=== PATIENT | female | born 1950 ===

== ENCOUNTER 2016-07-31 09:39 | Emergency (ER) | payer BC ==
[2016-07-31 10:38] VITALS: BP 138/72
--- NOTE | 2016-07-31 12:15 | UC ---
Complaint Female HPI - HPI Summary HPI Summary: 2-3 DAYS OF MILD URINARY SX. PT DID NOT WANT TO GO TO DOCTOR ON HOLIDAY SO TOOK AZO FOR 2 DAYS. WOKE THIS MORNING WITH INCREASED PAIN, FREQUENCY AND GROSS HEMATURIA. - History Of Current Complaint Chief Complaint: UCGU Stated Complaint: UTI Time Seen by Provider: 07/31/16 11:20 Hx Obtained From: Patient ?: No Onset/Duration: Gradual Onset, Lasting Days - 3, Still Present, Worse Since - TODAY Timing: Constant Severity Initially: Mild Severity Currently: Moderate Pain Intensity: 3 Character: Dull, Burning Aggravating Factor(s): Nothing Alleviating Factor(s): Nothing Associated Signs And Symptoms: Negative: Fever, Back Pain, Vaginal Bleeding/ Discharge, Vaginal Discharge, Nausea, Vomiting(# Of Episodes =), Genital Swelling, Genital Blisters - Allergies/Home Medications Allergies/Adverse Reactions: Allergies Allergy/AdvReac Type Severity Reaction Status Date / Time Morphine and Related Allergy Hives Verified 07/31/16 10:43 environmental Allergy Congestion Uncoded 07/31/16 10:43 opioids Allergy Itching Uncoded 07/31/16 10:43 Home Medications: Home Medications Cholecalciferol TAB* [Vitamin D TAB*] 2,000 units PO DAILY 07/31/16 [History Confirmed 07/31/16] Conjugated Estrogens-Medroxypr [Prempro] 1 tab PO DAILY 07/31/16 [History Confirmed 07/31/16] PMH/Surg Hx/FS Hx/Imm Hx Cardiovascular History Of: Reports: Hypertension - Surgical History Surgical History: Yes Surgery Procedure, Year, and Place: Gastric bypass, david, appy, hiatal hernia repair all in same surgery 1994. - Family History Known Family History: Positive: Cardiac Disease, Hypertension Negative: Diabetes - Social History Occupation: Employed Full-time Lives: With Family Alcohol Use: None Substance Use Type: None Smoking Status (MU): Former Smoker Review of Systems Constitutional: Negative Skin: Negative Eyes: Negative ENT: Negative Respiratory: Negative Cardiovascular: Negative Gastrointestinal: Negative Genitourinary: Dysuria, Hematuria, Frequency Motor: Negative Neurovascular: Negative Musculoskeletal: Negative Neurological: Negative Psychological: Negative All Other Systems Reviewed And Are Negative: Yes Physical Exam Triage Information Reviewed: Yes Appearance: Well-Appearing, No Pain Distress, Well-Nourished Vital Signs: Initial Vital Signs Temp 97.3 F 07/31/16 10:34 Pulse 73 07/31/16 10:34 Resp 14 07/31/16 10:34 BP 138/72 07/31/16 10:34 Pulse Ox 100 07/31/16 10:34 Vital Signs Reviewed: Yes Eyes: Positive: Conjunctiva Clear. Negative: Discharge ENT: Positive: Hearing grossly normal. Negative: Muffled/hoarse voice Neck exam: Normal Neck: Positive: Supple Respiratory: Positive: Lungs clear, Normal breath sounds, No respiratory distress, No accessory muscle use Cardiovascular: Positive: RRR, No Murmur Abdomen Description: Positive: Soft. Negative: Nontender - TENDER SUPRAPUBIC, CVA Tenderness (R), CVA Tenderness (L), Distended, Guarding, McBurney's Point Tenderness Bowel Sounds: Positive: Present Musculoskeletal Exam: Normal Neurological: Positive: Alert, Muscle Tone Normal Psychological: Positive: Age Appropriate Behavior Skin Exam: Normal Complaint Female Dx - Differential Dx/Diagnosis Differential Diagnosis/HQI/PQRI: Urinary Tract Infection Provider Diagnoses: UTI, HEMATURIA Discharge - Discharge Plan Condition: Stable Disposition: HOME Prescriptions: Ciprofloxacin TAB* [Cipro Tab*] 250 mg PO BID #6 tab Patient Education Materials: Urinary Tract Infection in Women (ED), Hematuria ( ED) Referrals: Perico Redding DO [Primary Care Provider] - (FOLLOW UP IN 2 DAYS IF NOT IMPROVING. OTHERWISE FOLLOW UP IN 2 WEEKS.) Additional Instructions: CIPROFLOXACIN: You have been given a new antibacterial agent, ciprofloxacin (Cipro). This medicine is not related to the penicillins, sulfas, cephalosporins, or tetracyclines. It is often given to patients who are allergic to these drugs. It has been chosen for you either because other drugs are not appropriate, or because of the nature of your problem. Cipro should not be taken with antacids, as these can decrease its effectiveness. It can be taken without regard to meals. CIPRO SHOULD NOT BE TAKEN BY CHILDREN, NURSING WOMEN, OR WOMEN. Although Cipro is usually well-tolerated, common side effects can include nausea and diarrhea. Contact your doctor if you experience any unusual symptoms while on this medication, such as joint pain or swelling, shortness of breath, wheezing, faintness, or hives. ANY TIME YOU TAKE AN ANTIBIOTIC, IT IS IMPORTANT TO REPLENISH THE BODY'S BALANCE OF "GOOD" BACTERIA BY EATING HIGH QUALITY CULTURED FOOD SUCH YOGURT, SAURKRAUT OR SYLVIA CHI AND/OR TAKING A PROBIOTIC SUPPLEMENT.
== END 2016-07-31 12:15 | disposition home or self-care (01) ==
LOC: UCCORT 09:39
DX: N39.0 Urinary tract infection, site not specified (principal); R31.9 Hematuria, unspecified; Z88.5 Allergy status to narcotic agent; Z79.890 Hormone replacement therapy; I10 Essential (primary) hypertension; Z87.891 Personal history of nicotine dependence
CPT/HCPCS: 87077; 87086; 87186; 99212; G0463

== ENCOUNTER 2016-09-09 09:37 | Emergency (ER) | payer BC ==
[2016-09-09 10:59] VITALS: BP 158/104
--- NOTE | 2016-09-09 11:28 | UC ---
Complaint Female HPI - HPI Summary HPI Summary: URINARY FREQUENCY , BURNING X 1 DAY , NO FEVER, NO CHILLS , NO FLANK PAIN + HEMATURIA - History Of Current Complaint Chief Complaint: UCGU Stated Complaint: URINARY COMPLAINT Time Seen by Provider: 09/09/16 11:11 Hx Obtained From: Patient Onset/Duration: Sudden Onset, Lasting Days - 1, Still Present Timing: Constant Severity Initially: Moderate Severity Currently: Moderate Character: Burning Aggravating Factor(s): Urination Associated Signs And Symptoms: Negative: Fever, Back Pain, Vaginal Bleeding/ Discharge, Vaginal Discharge, Nausea, Vomiting(# Of Episodes =), Genital Swelling, Genital Blisters, Retained Foregin Body (Specify) - Allergies/Home Medications Allergies/Adverse Reactions: Allergies Allergy/AdvReac Type Severity Reaction Status Date / Time Morphine and Related Allergy Hives Verified 09/09/16 10:56 environmental Allergy Congestion Uncoded 09/09/16 10:56 opioids Allergy Itching Uncoded 09/09/16 10:56 PMH/Surg Hx/FS Hx/Imm Hx Cardiovascular History Of: Reports: Hypertension - Surgical History Surgical History: Yes Surgery Procedure, Year, and Place: Gastric bypass, david, appy, hiatal hernia repair all in same surgery 1994. - Family History Known Family History: Positive: Cardiac Disease, Hypertension Negative: Diabetes - Social History Alcohol Use: None Substance Use Type: None Smoking Status (MU): Former Smoker Amount Used/How Often: about 1 ppd Length of Time of Smoking/Using Tobacco: from age 21 to age 47 When Did the Patient Quit Smoking/Using Tobacco: quit 1996 Review of Systems Constitutional: Negative Skin: Negative Eyes: Negative ENT: Negative Respiratory: Negative Cardiovascular: Negative Gastrointestinal: Negative Genitourinary: Dysuria, Frequency, Urgency All Other Systems Reviewed And Are Negative: Yes Physical Exam Triage Information Reviewed: Yes Appearance: Well-Appearing, No Pain Distress, Well-Nourished Vital Signs: Initial Vital Signs Temp 98.4 F 09/09/16 10:52 Pulse 66 09/09/16 10:52 Resp 14 09/09/16 10:52 BP 158/104 09/09/16 10:52 Pulse Ox 99 09/09/16 10:52 Vital Signs Reviewed: Yes Eyes: Positive: Conjunctiva Clear ENT: Positive: Normal ENT inspection, Hearing grossly normal, Pharynx normal Neck: Positive: Supple, Nontender, No Lymphadenopathy Respiratory Exam: Normal Respiratory: Positive: Chest non-tender, Lungs clear, Normal breath sounds Cardiovascular: Positive: RRR, No Murmur, Pulses Normal Abdominal Exam: Normal Abdomen Description: Positive: Nontender, Soft. Negative: CVA Tenderness (R), CVA Tenderness (L), Distended, Guarding Bowel Sounds: Positive: Present Skin Exam: Normal Complaint Female Dx - Differential Dx/Diagnosis Provider Diagnoses: UTI Discharge - Discharge Plan Condition: Stable Disposition: HOME Prescriptions: Ciprofloxacin TAB* [Cipro Tab*] 500 mg PO BID #14 tab Patient Education Materials: Urinary Tract Infection in Women (ED) Referrals: Perico Redding DO [Primary Care Provider] - If Needed
== END 2016-09-09 11:49 | disposition home or self-care (01) ==
LOC: UCCORT 09:37
DX: N39.0 Urinary tract infection, site not specified (principal); I10 Essential (primary) hypertension; I51.9 Heart disease, unspecified; Z87.891 Personal history of nicotine dependence; Z98.84 Bariatric surgery status; Z88.5 Allergy status to narcotic agent
CPT/HCPCS: 87086; 99212; G0463

== ENCOUNTER 2017-02-02 19:26 | Emergency (ER) | payer BC ==
[2017-02-02 19:48] VITALS: BP 132/77
--- NOTE | 2017-02-02 19:57 | UC ---
Complaint Female HPI - HPI Summary HPI Summary: Pt presents with c/o dysuria, foul odor with urination, frequency and urgency X 2 days. - History Of Current Complaint Chief Complaint: UCGU Stated Complaint: URINARY COMPLAINT Time Seen by Provider: 02/02/17 19:44 Hx Obtained From: Patient ?: No Onset/Duration: Sudden Onset, Lasting Days Timing: Constant Severity Initially: Mild Severity Currently: Mild Character: Dull, Burning Aggravating Factor(s): Urination Alleviating Factor(s): Meds - AZO Associated Signs And Symptoms: Positive: Negative - Allergies/Home Medications Allergies/Adverse Reactions: Allergies Allergy/AdvReac Type Severity Reaction Status Date / Time Morphine and Related Allergy Hives Verified 02/02/17 19:48 environmental Allergy Congestion Uncoded 02/02/17 19:48 opioids Allergy Itching Uncoded 02/02/17 19:48 Home Medications: Home Medications Calcium 500 mg PO DAILY 02/02/17 [History Confirmed 02/02/17] Conjugated Estrogens-Medroxypr [Prempro 0.45-1.5 mg] 1 tab PO DAILY 02/02/17 [ History Confirmed 02/02/17] PMH/Surg Hx/FS Hx/Imm Hx Previously Healthy: Yes GI/ History: Other - UTI Other GI/ History: UTI - Surgical History Surgical History: Yes Surgery Procedure, Year, and Place: Gastric bypass, david, appy, hiatal hernia repair all in same surgery 1994. - Family History Known Family History: Positive: Cardiac Disease, Hypertension Negative: Diabetes - Social History Alcohol Use: Occasionally Substance Use Type: None Smoking Status (MU): Former Smoker Amount Used/How Often: about 1 ppd Length of Time of Smoking/Using Tobacco: from age 21 to age 47 When Did the Patient Quit Smoking/Using Tobacco: quit 1996 Review of Systems Constitutional: Negative Skin: Negative Eyes: Negative ENT: Negative Respiratory: Negative Cardiovascular: Negative Gastrointestinal: Negative Genitourinary: Dysuria, Frequency, Urgency, Other - odor Motor: Negative Neurovascular: Negative Musculoskeletal: Negative Neurological: Negative Psychological: Negative All Other Systems Reviewed And Are Negative: Yes Physical Exam Triage Information Reviewed: Yes Appearance: Well-Appearing Vital Signs: Initial Vital Signs Temp 98.9 F 02/02/17 19:43 Pulse 98 02/02/17 19:43 Resp 16 02/02/17 19:43 BP 132/77 02/02/17 19:43 Pulse Ox 98 02/02/17 19:43 Eye Exam: Normal Neck exam: Normal Respiratory Exam: Normal Cardiovascular Exam: Normal Abdominal Exam: Normal Musculoskeletal Exam: Normal Neurological Exam: Normal Psychological Exam: Normal Skin Exam: Normal Complaint Female Dx - Course Course Of Treatment: I explained to the pt that due to her prior use of OTC AZO that we are unable to to test her urine with a UA and that we will have to treat her empirically for a UTI and send out her urine for a culture. Pt verbalized understanding and agreed to plan of care. - Differential Dx/Diagnosis Differential Diagnosis/HQI/PQRI: Urinary Tract Infection, Other - dysuria Provider Diagnoses: dysuria Discharge - Discharge Plan Condition: Stable Disposition: HOME Prescriptions: Cephalexin CAP* [Keflex 500 CAP*] 500 mg PO Q12H #14 cap Patient Education Materials: Dysuria (ED) Referrals: Perico Redding DO [Primary Care Provider] - If Needed
--- NOTE | 2017-02-05 07:37 | UC ---
Progress - Progress Note Progress Note: please inform this pt that her urine culture did not grow out any bacteria. also let her know that 1 out of 2 of her prior cx failed to grow out bacteria, this suggests that her sx were not the result of an infection. it is ok to stop abx. we wanted to let her know. she can follow up with pcp on why she may be having sx without infection.
== END 2017-02-02 20:07 | disposition home or self-care (01) ==
LOC: UCCORT 19:26
DX: R30.0 Dysuria (principal); Z87.440 Personal history of urinary (tract) infections; Z87.891 Personal history of nicotine dependence
CPT/HCPCS: 87086; 99212; G0463

== ENCOUNTER 2019-04-22 07:11 | Emergency (ER) | payer BC ==
[2019-04-22 07:29] VITALS: BP 157/91
--- NOTE | 2019-04-22 07:57 | UC ---
Laceration HPI - HPI Summary HPI Summary: head laceration x 3 days ago s/p fall on her kitchen , hit the back of her head / scalp , laceration of the posterior scalp, moderate in severity , has been applying pressure to control the bleeding no loc, no memory loss, no vision loss, no n/v, no photophobia - History Of Current Complaint Chief Complaint: UCLaceration Stated Complaint: HEAD LAC Time Seen by Provider: 04/22/19 07:23 Hx Obtained From: Patient Laceration Location: Hand Mechanism Of Injury: Blunt Trauma Onset/Duration: Sudden Onset, Still Present Severity: Moderate Pain Intensity: 0 Aggravating Factors: Movement - Allergies/Home Medications Allergies/Adverse Reactions: Allergies Allergy/AdvReac Type Severity Reaction Status Date / Time morphine Allergy "Full body Verified 04/22/19 07:26 rash" Opioids - Morphine Analogues Allergy See Comment Verified 04/22/19 07:26 oxycodone Allergy Itching Verified 04/22/19 07:26 environmental Allergy Congestion Uncoded 04/22/19 07:26 opioids Allergy Itching Uncoded 04/22/19 07:26 Home Medications: Home Medications Calcium Carb/D3/Magnesium/Zinc [Geovany Mag Zinc + D3 Tablet] 1 each PO DAILY [History Confirmed 04/22/19] Cyanocobalamin TAB* [Vitamin B12 TAB*] 1,000 mcg PO DAILY 04/22/19 [History Confirmed 04/22/19] Ferrous Sulfate TAB* 325 mg PO DAILY 04/22/19 [History Confirmed 04/22/19] Ibuprofen TAB* [Advil TAB*] 800 mg PO Q8H PRN 04/22/19 [History Confirmed ] Irbesartan (NF) [Avapro (NF)] mg PO DAILY 04/22/19 [History] Melatonin [Melatonin Maximum Strengt] 10 mg PO BEDTIME 04/22/19 [History Confirmed 04/22/19] Metoprolol Tartrate TAB* [Lopressor TAB*] mg PO DAILY 04/22/19 [History] Montelukast Sodium TAB* [Singulair TAB*] 10 mg PO DAILY 04/22/19 [History Confirmed 04/22/19] Pantoprazole TAB * [Protonix TAB*] mg PO DAILY 04/22/19 [History] PMH/Surg Hx/FS Hx/Imm Hx Cardiovascular History: Hypertension Respiratory History: COPD, Asthma - Surgical History Surgical History: Yes Surgery Procedure, Year, and Place: Gastric bypass, david, appy, hiatal hernia repair all in same surgery 1994. - Family History Known Family History: Positive: Cardiac Disease, Hypertension Negative: Diabetes - Social History Alcohol Use: Occasionally Substance Use Type: None Smoking Status (MU): Former Smoker Type: Cigarettes Amount Used/How Often: about 1 ppd Length of Time of Smoking/Using Tobacco: ~1 PPD x 26 Years When Did the Patient Quit Smoking/Using Tobacco: 1996 - Immunization History Most Recent Tetanus Shot: "It wasn't that long ago." Review of Systems All Other Systems Reviewed And Are Negative: Yes Constitutional: Positive: Negative Eyes: Positive: Negative ENT: Positive: Negative Respiratory: Positive: Negative Musculoskeletal: Positive: Negative Neurological: Positive: Negative. Negative: Headache, Weakness, Paresthesia, Numbness Is Patient Immunocompromised?: No Physical Exam Triage Information Reviewed: Yes Appearance: Well-Appearing, No Pain Distress, Well-Nourished Vital Signs: Initial Vital Signs Temp 97.8 F 04/22/19 07:22 Pulse 70 04/22/19 07:22 Resp 16 04/22/19 07:22 BP 157/91 04/22/19 07:22 Pulse Ox 100 04/22/19 07:22 Vital Signs Reviewed: Yes Eye Exam: Normal Eyes: Positive: Conjunctiva Clear ENT: Positive: Normal ENT inspection, Hearing grossly normal, Pharynx normal, TMs normal Neck: Positive: Supple, Nontender, No Lymphadenopathy Respiratory: Positive: Chest non-tender, Lungs clear, Normal breath sounds Cardiovascular: Positive: RRR, No Murmur, Pulses Normal Abdominal Exam: Normal Neurological: Positive: Alert, Muscle Tone Normal Skin: Positive: Other - 2 cm posterior scalp 3 days old laceration, mild bleedig , no need for repair at this tiem Laceration Course/Dx - Diagnosis Provider Diagnosis: Scalp laceration Discharge ED - Sign-Out/Discharge Documenting (check all that apply): Patient Departure All imaging exams completed and their final reports reviewed: No Studies - Discharge Plan Condition: Stable Disposition: HOME Patient Education Materials: Head Injury (ED), Laceration Without Closure (ED) Referrals: Perico Redding DO [Primary Care Provider] - Additional Instructions: old laceration, no need for repair at this time apply pressure dressing, keep the wound clean and dry follow up as needed - Billing Disposition and Condition Condition: STABLE Disposition: Home
== END 2019-04-22 07:59 | disposition home or self-care (01) ==
LOC: UCCORT 07:11
DX: S01.01XA Laceration without foreign body of scalp, initial encounter (principal); W19.XXXA Unspecified fall, initial encounter; Y92.000 Kitchen of unspecified non-institutional (private) residence as the place of occurrence of the external cause; Z88.5 Allergy status to narcotic agent; Z87.891 Personal history of nicotine dependence
CPT/HCPCS: 99211; G0463

== ENCOUNTER 2019-09-02 10:16 | Emergency (ER) | payer BC ==
[2019-09-02 11:14] VITALS: BP 169/117
--- NOTE | 2019-09-02 11:30 | UC ---
FLU HPI - HPI Summary HPI Summary: 69-year-old female presents with complaints of upper respiratory symptoms. States that 4 days ago she started with nasal congestion, sinus pressure, and clear nasal discharge. The following day started developing a dry nonproductive cough which has progressively worsened. States cough has been keeping her awake at night. History of asthma and COPD however states has not needed to use her rescue inhaler. 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 Denies fever, chills, body aches, ear pain, sore throat, chest pain, shortness of breath, wheezing, abdominal pain, nausea, vomiting, or diarrhea. - History of Current Complaint Chief Complaint: UCRespiratory Stated Complaint: COUGH LOW GRADE FEVER Time Seen by Provider: 09/02/19 11:05 Hx Obtained From: Patient Pain Intensity: 0 - Allergy/Home Medications Allergies/Adverse Reactions: Allergies Allergy/AdvReac Type Severity Reaction Status Date / Time morphine Allergy "Full body Verified 09/02/19 11:07 rash" Opioids - Morphine Analogues Allergy See Comment Verified 09/02/19 11:07 oxycodone Allergy Itching Verified 09/02/19 11:07 environmental Allergy Congestion Uncoded 09/02/19 11:07 opioids Allergy Itching Uncoded 09/02/19 11:07 Home Medications: Home Medications Acetaminophen [Tylenol Arthritis] 650 mg PO Q8H PRN 09/02/19 [History Confirmed 09/02/19] Albuterol HFA INHALER* [Ventolin HFA Inhaler*] 2 puff INH Q4H PRN 09/02/19 [ History Confirmed 09/02/19] Budesonide/Formote 160/4.5(NF) [Symbicort 160/4.5 (NF)] 1 puff INH BID 09/02/19 [History Confirmed 09/02/19] PMH/Surg Hx/FS Hx/Imm Hx Cardiovascular History: Hypertension Respiratory History: COPD, Asthma GI/ History: Gastroesophageal Reflux - Surgical History Surgical History: Yes Surgery Procedure, Year, and Place: Gastric bypass, david, appy, hiatal hernia repair all in same surgery 1994. - Family History Known Family History: Positive: Cardiac Disease, Hypertension Negative: Diabetes - Social History Occupation: Employed Full-time Lives: With Family Alcohol Use: None Substance Use Type: None Smoking Status (MU): Former Smoker Type: Cigarettes Amount Used/How Often: about 1 ppd Length of Time of Smoking/Using Tobacco: ~1 PPD x 26 Years When Did the Patient Quit Smoking/Using Tobacco: 1996 - Immunization History Most Recent Tetanus Shot: "It wasn't that long ago." Review of Systems All Other Systems Reviewed And Are Negative: Yes Constitutional: Negative: Fever, Chills Eyes: Negative: Drainage, Eye Redness ENT: Positive: Nasal Discharge, Sinus Congestion, Sinus Pain/Tenderness. Negative: Sore Throat, Ear Ache Respiratory: Positive: Cough. Negative: Shortness Of Breath Cardiovascular: Negative: Palpitations, Chest Pain Gastrointestinal: Negative: Abdominal Pain, Vomiting, Diarrhea, Nausea Genitourinary: Positive: Negative Musculoskeletal: Positive: Negative Neurological: Positive: Negative Is Patient Immunocompromised?: No Physical Exam - Summary Physical Exam Summary: GENERAL APPEARANCE: Well developed, well nourished, alert and cooperative, and appears to be in no acute distress. EYES: Conjunctiva clear. No drainage. EARS: External auditory canals and tympanic membranes clear, hearing grossly intact. NOSE: Mild to moderate nasal congestion. No nasal discharge. THROAT: Pharynx normal. No tonsilar inflammation, swelling, exudate, or lesions. Uvula midline. NECK: Neck supple, non-tender without lymphadenopathy. CARDIAC: Normal S1 and S2. No S3, S4 or murmurs. Rhythm is regular. There is no peripheral edema, cyanosis or pallor. Extremities are warm and well perfused. Capillary refill is less than 2 seconds. Peripheral pulses intact. LUNGS: Clear to auscultation without rales, rhonchi, wheezing or diminished breath sounds. Try nonproductive cough. ABDOMEN: Positive bowel sounds. Soft, nondistended, nontender. No guarding or rebound. No masses or hepatosplenomegally. MUSKULOSKELETAL: ROM intact to all extremities. No joint erythema or tenderness. Normal muscular development. Normal gait. SKIN: Skin normal color, texture and turgor with no lesions or eruptions. Triage Information Reviewed: Yes Vital Signs: Initial Vital Signs Temp 98.6 F 09/02/19 11:10 Pulse 70 09/02/19 11:10 Resp 17 09/02/19 11:10 BP 169/117 09/02/19 11:10 Pulse Ox 100 09/02/19 11:10 Vital Signs Reviewed: Yes Flu Course/Dx - Course Course Of Treatment: 69-year-old female presents with complaints of upper respiratory symptoms. States that 4 days ago she started with nasal congestion, sinus pressure, and clear nasal discharge. The following day started developing a dry nonproductive cough which has progressively worsened. States cough has been keeping her awake at night. History of asthma and COPD however states has not needed to use her rescue inhaler. 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 Denies fever, chills, body aches, ear pain, sore throat, chest pain, shortness of breath, wheezing, abdominal pain, nausea, vomiting, or diarrhea. Afebrile. Hypertensive otherwise vital signs stable. Patient had mild nasal congestion, normal TMs, normal pharynx without tonsillar swelling or exudate, no cervical lymphadenopathy, clear bilateral breath sounds, dry nonproductive cough, and otherwise unremarkable exam. Rapid flu test was negative. Reviewed results with the patient. Recommending symptomatic treatment for a viral upper respiratory infection. She is to follow-up with her primary care provider in 3- 5 days if symptoms are not improving. Anticipatory guidance and warning symptoms are reviewed with the patient. Verbalizes understanding and agrees with plan of care. - Differential Dx/Diagnosis Differential Diagnosis/HQI/PQRI: Bronchitis, Influenza, Pneumonia, Upper Respiratory Infection Provider Diagnosis: Viral URI with cough Discharge ED - Sign-Out/Discharge Documenting (check all that apply): Patient Departure All imaging exams completed and their final reports reviewed: No Studies - Discharge Plan Condition: Stable Disposition: HOME Prescriptions: Benzonatate CAP* [Tessalon 100 MG CAP*] 100 mg PO TID PRN #21 cap PRN Reason: Cough Patient Education Materials: Upper Respiratory Infection (ED) Forms: *Work Release Referrals: Perico Redding DO [Primary Care Provider] - 3 Days (If no improvement.) Additional Instructions: The flu test performed in the clinic today was negative. Your history and exam are consistent with a viral upper respiratory infection. Viral infections do not respond to antibiotics and are limited to the treatment of symptoms. Viral infections typically run their course in 7-10 days. Drink plenty of fluids to avoid dehydration especially if you are running any fever. Use a saline rinse kit such as Neti Pot or NeilMed at least twice a day to help thin secretions and promote drainage of the sinuses. Use fluticasone (Flonase) nasal spray 2 sprays each nostril once daily. Use Tessalon Perles 1 cap every 8 hours as needed for cough. Take over the counter acetaminophen (Tylenol) or ibuprofen (Advil, Motrin) according to directions as needed for pain or fever. Use salt water gargles several times a day if you have a sore throat. You may also use Chloraseptic spray or Cepacol lonzenges according to directions which contain a numbing medication and can provide some temporary relief from your sore throat. Follow up with your primary care provider in 3-5 days if symptoms persist. Seek immediate medical attention in the emergency room if you have fever greater than 100.5 F despite taking acetaminophen or ibuprofen, have chest pain , difficulty breathing, are unable to swallow, or have any worsening of symptoms. - Billing Disposition and Condition Condition: STABLE Disposition: Home
[2019-09-02 11:31] LABS: Influenza A Molecular Negative (Negative); Influenza B Molecular Negative (Negative)
== END 2019-09-02 11:50 | disposition home or self-care (01) ==
LOC: UCCORT 10:16
DX: J06.9 Acute upper respiratory infection, unspecified (principal); R05 Cough; J45.909 Unspecified asthma, uncomplicated; J44.9 Chronic obstructive pulmonary disease, unspecified; I10 Essential (primary) hypertension; Z87.891 Personal history of nicotine dependence; Z88.5 Allergy status to narcotic agent; Z91.09 Other allergy status, other than to drugs and biological substances
CPT/HCPCS: 99212; G0463